=== PATIENT | male | born 1935 | race Caucasian/White ===

== ENCOUNTER 2017-11-05 18:28 | Emergency (ER) | payer MEDICARE, BC ==
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
[2017-11-05] MEDS ORDERED: Silver Sulfadiazine 1% Crm 400 GM Jar TOP ONE (20:01)
[2017-11-05] MEDS ORDERED: Silver Sulfadiazine 1% Crm 50 GM Tube TOP ONE (20:10)
== END 2017-11-05 21:13 | disposition home or self-care (01) ==
LOC: JP.ED 18:28
DX: T22.211A Burn of second degree of right forearm, initial encounter (principal); I10 Essential (primary) hypertension; I48.91 Unspecified atrial fibrillation; Z88.0 Allergy status to penicillin; Z91.013 Allergy to seafood
CPT/HCPCS: 16020; 99283; A9270